=== PATIENT | male | born 1980 | race Caucasian/White ===

== ENCOUNTER 2017-12-23 12:48 | Emergency (ER) | payer BC ==
[~2017-12-23 12:48] MED LIST: Iopamidol 370 76% 100 ML VIAL ONE
--- NOTE | 2017-12-23 14:37 | CT ---
CT OF ABDOMEN AND PELVIS: Date: 12-23-17 Comparison: None. History: Generalized abdominal pain with developing right lower quadrant pain. Technique: Serial axial CT imaging obtained at 5 mm intervals from lung bases through pubic symphysis with IV contrast. Coronal reformatted imaging obtained. FINDINGS: Evaluation of the bowel is slightly limited on the basis of lack of oral contrast. The visualized lung bases are unremarkable with no free intraperitoneal air or fluid seen. The liver and gallbladder appear unremarkable. There is nonspecific enlargement of the spleen, which measures 16 cm in AP dimension. The pancreas and bilateral adrenal glands appear grossly unremarkable as do bilateral kidneys. Partially imaged nonspecific right sided hydrocele present. There is no periappendiceal fat stranding. The appendix is of normal caliber. No CT evidence for appe ndicitis is appreciated at this time. There is no lymphadenopathy seen in the abdomen/pelvis. Vascular structures appear grossly unremarkab le. No acute osseous abnormality. There is lower lumbar spine facet hypertrophy, most prominent on the right at L5-S1. IMPRESSION: 1. No evidence for free intraperitoneal air, bowel obstruction, or appendicitis. 2. Partially imaged right sided hydrocele. 3. Nonspecific splenomegaly. POS: [facility]
== END 2017-12-23 14:45 | disposition home or self-care (01) ==
LOC: SCSER 12:48
DX: S39.011A Strain of muscle, fascia and tendon of abdomen, initial encounter (principal); X58.XXXA Exposure to other specified factors, initial encounter
CPT/HCPCS: 74177

== ENCOUNTER 2021-11-14 12:57 | Outpatient (CLI) | payer BC, OTHER ==
[2021-11-15 00:52] LABS: SARS-CoV-2 PCR by NAA Not Detected (NotDetected)
== END 2021-11-14 12:58 | disposition home or self-care (01) ==
LOC: LABBT 12:57
PROVIDERS: ATTEND Urology
DX: N43.40 Spermatocele of epididymis, unspecified (principal); Z20.822 Contact with and (suspected) exposure to COVID-19
CPT/HCPCS: U0003; U0005

== ENCOUNTER 2021-11-19 07:23 | Day surgery (SDC) | payer OTHER ==
[2021-11-14 14:22] VITALS: BMI 35.9
[2021-11-19] MEDS ORDERED: Bupivacaine 0.25% 10 ML VIAL ONE (10:16)
[2021-11-19] MEDS ORDERED: Bacitracin Zinc Ointment 30 gm TUBE ONE (10:16)
[2021-11-19] MEDS ORDERED: Fentanyl 250 MCG/5 ML VIAL ONE (10:20)
[2021-11-19] MEDS ORDERED: Promethazine HCl 25 MG/ML VIAL ONE (10:21)
[2021-11-19] MEDS ORDERED: ceFAZolin (BATCH) 2 GM/100 ML BAG ONE (10:23)
[2021-11-19] MEDS ORDERED: PROPOFOL 200 MG/20 ML VIAL ONE (10:30)
[2021-11-19] MEDS ORDERED: Ondansetron PF 4 MG/2 ML Vial ONE (10:30)
[2021-11-19] MEDS ORDERED: Ketorolac Tromethamine 30 MG/ML VIAL ONE (10:30)
[2021-11-19] MEDS ORDERED: Lidocaine 1% PF 5 ML VIAL ONE (10:30)
[2021-11-19] MEDS ORDERED: Dexamethasone 20 MG/5 ML VIAL ONE (10:30)
== END 2021-11-19 13:15 | disposition home or self-care (01) ==
LOC: SDC 07:23
PROVIDERS: ATTEND Urology
PROC: 0VB60ZZ Excision of Right Tunica Vaginalis, Open Approach (ICD-10-PCS; principal; 2021-11-19)
DX: N43.3 Hydrocele, unspecified (principal)
CPT/HCPCS: J0690; J1100; J1885; J2405; J2550; J2704; J3010; S0020